=== PATIENT | female | born 1960 | race Two or more races ===

== ENCOUNTER 2019-10-31 10:30 | Emergency (ER) | payer OTHER ==
[~2019-10-31] VITALS: Ht 157.5 cm; Wt 72.6 kg
[~2019-10-31 10:30] MED LIST: MOXIFLOXACIN H400 MG; PROBIOTIC1 EAC1 PO; ZITHROMAX500 MG PO
[2019-10-31] MEDS ORDERED: TOPROL XL25 M1 PO (10:52)
[2019-10-31] MEDS ORDERED: ZITHROMAX500 MG PO (13:18)
== END 2019-10-31 13:18 | disposition home or self-care (01) ==
LOC: ER 10:30
DX: R51 Headache (principal); B96.0 Mycoplasma pneumoniae [M. pneumoniae] as the cause of diseases classified elsewhere